=== PATIENT | male | born 1960 | race Hispanic/Latino ===

== ENCOUNTER 2021-07-25 21:34 | Observation (INO) | payer OTHER ==
[~2021-07-25] VITALS: Ht 175.3 cm; Wt 81.6 kg
[2021-07-25 21:51] LABS: BASOPHILS % 0.4 % (0.0-1.0); EOSINOPHILS # (AUTO) 0.1 (0.0-0.4); EOSINOPHILS % 1.4 % (0.0-6.0); HEMATOCRIT 50.2 % (38.2-49.6); HEMOGLOBIN 16.2 g/dL (14.0-18.0); LYMPHOCYTES # (AUTO) 2.5 (1.0-3.2); LYMPHOCYTES % 35.6 % (18.0-39.1); MEAN CORPUSCULAR HEMOGLOBIN 30.4 pg (28-32); MEAN CORPUSCULAR HGB CONC 32.3 g/dL (31-35); MEAN CORPUSCULAR VOLUME 94.2 fL (81-99); MONOCYTES # (AUTO) 0.7 (0.2-0.8); MONOCYTES % 9.9 % (4.4-11.3); NEUTROPHILS # (AUTO) 3.7 (2.1-6.9); NEUTROPHILS % 52.6 % (38.7-80.0); PLATELET COUNT 245 x10e3/uL (140-360); RED BLOOD COUNT 5.33 x10e6/uL (4.3-5.7); RED CELL DISTRIBUTION WIDTH 13.2 % (11.7-14.4)
[2021-07-25] MEDS ORDERED: METOPROLOL TARTRATE INJ 1 MG/ML VIAL IV ONE ×2 (22:00→22:45)
[2021-07-25 22:11] LABS: ALBUMIN 4.3 g/dL (3.5-5.0); ALBUMIN/GLOBULIN RATIO 1.5 (0.8-2.0); ANION GAP 8.6 mmol/L (8-16); CALCIUM 9.7 mg/dL (8.4-10.2); CREATININE, SERUM 1.22 mg/dL (0.72-1.25); POTASSIUM 3.6 mmol/L (3.5-5.1)
[2021-07-25 22:17] LABS: CREATINE KINASE MB 2.4 ng/mL (0-5.0)
[2021-07-25] MEDS ORDERED: METOPROLOL TARTRATE INJ 1 MG/ML VIAL ONE (22:55)
[2021-07-25] MEDS ORDERED: SODIUM CHLORIDE 0.9% 1000ML 1,000 ML ONE (22:55)
[2021-07-25] MEDS ORDERED: SODIUM CHLORIDE 0.9% 1000ML 1,000 ML IV ONE (23:00)
[2021-07-25 23:22] LABS: FREE THYROXINE INDEX 2.4231 (1.4-3.8); THYROID STIMULATING HORMONE 3.862 uIU/mL (0.350-4.940)
[2021-07-25] MEDS ORDERED: DIGOXIN INJ 0.25 MG/ML 2 ML AMP IV ONE (23:30)
[2021-07-26] VITALS (7 sets, daily range): BP systolic 104–132; BP diastolic 70–89
[2021-07-26] MEDS ORDERED: SODIUM CHLORIDE FLUSH 10 ML SYR INJ PRN
[2021-07-26] MEDS ORDERED: METOPROLOL TARTRATE 25 MG TAB PO SCH
[2021-07-26] MEDS ORDERED: FARXIGA PO (02:58)
[2021-07-26] MEDS ORDERED: METFORMIN HCL500 MG PO (02:58)
[2021-07-26] MEDS ORDERED: ALTOPREV40 MG PO (02:58)
[2021-07-26] MEDS ORDERED: OZEMPIC0.25 MG/0. SC (02:58)
[2021-07-26] MEDS ORDERED: PHENOBARBITAL (02:58)
[2021-07-26] MEDS ORDERED: TRICOR145 MG PO (07:32)
[2021-07-26 08:41] LABS: CHOL/HDL RATIO 3.3 (3.9-4.7)
[2021-07-26] MEDS ORDERED: NON-FORMULARY MEDICATION (Semaglutide (Ozempic) 1 MG) SQ SCH (09:15)
[2021-07-26 09:22] LABS: CREATINE KINASE MB 1.8 ng/mL (0-5.0)
[2021-07-26] MEDS ORDERED: METOPROLOL SUCCINATE 25 MG TAB XL PO SCH (11:15)
[2021-07-26 15:18] LABS: CREATINE KINASE MB 1.4 ng/mL (0-5.0)
[2021-07-26] MEDS ORDERED: METFORMIN HCL 500 MG TAB PO SCH (17:00)
[2021-07-26] MEDS ORDERED: LOVASTATIN 40 MG PO SCH (21:00)
[2021-07-27] MEDS ORDERED: FENOFIBRATE 145 MG TAB PO SCH (09:00)
[2021-07-27] MEDS ORDERED: FARXIGA 10 MG PO SCH (09:00)
== END 2021-07-26 18:15 | disposition home or self-care (01) ==
LOC: ER 21:46 → ERHOLD 23:53 → MED/SURG 07-26 02:20
PROVIDERS: ADMIT Family Medicine; ATTEND Family Medicine
DX: I47.1 Supraventricular tachycardia (principal); I10 Essential (primary) hypertension; E78.5 Hyperlipidemia, unspecified; Z79.84 Long term (current) use of oral hypoglycemic drugs; Z87.891 Personal history of nicotine dependence; Z20.822 Contact with and (suspected) exposure to COVID-19
CPT/HCPCS: 36415 ×2; 71045; 80053; 80061; 82550 ×2; 82553 ×2; 82948; 84436; 84443; 84479; 84484 ×2; 85025; 93005; 93306; 94799; 99284; C9113; G0378 ×2; J1160; J7030; U0002